=== PATIENT | female | born 1950 | race Caucasian/White ===

== ENCOUNTER 2017-08-12 11:23 | Emergency (ER) | payer OTHER ==
[2017-08-12 11:24] VITALS: BMI 29.3
[2017-08-12] MEDS ORDERED: Pantoprazole 40 MG in Sodium Chloride 0.9% 100 ML IV STA (12:09)
[2017-08-12] MEDS ORDERED: Iohexol 240 (50 ml) ONE (13:04)
[2017-08-12 13:15] LABS: BASO # 0.02 K/mm3 (0.0-2.0); BASO % 0.5 % (0.0-3.0); EOS # 0.1 (0.0-0.7); EOS % 2.5 % (1.5-5.0); GRAN # 1.36 (1.4-6.5); GRAN % 37.1 % (50.0-68.0); HEMOGLOBIN 10.6 g/dL (12.0-16.0); LYMPH # 1.8 (1.2-3.4); LYMPH % 49.2 % (22.0-35.0); MEAN CELL VOLUME 84.2 fl (80.0-105.0); MEAN CORPUSCULAR HEMOGLOBIN 26.6 pg (25.0-35.0); MEAN CORPUSCULAR HGB CONC 31.5 g/dl (31.0-37.0); MEAN PLATELET VOLUME 10.1 fl (7.0-11.0); MONO # 0.4 (0.1-0.6); MONO % 10.7 % (1.0-6.0); RBC 3.99 10^6/uL (3.5-6.1); RED CELL DISTRIBUTION WIDTH 14.6 % (11.5-14.5); WHITE BLOOD COUNT 3.7 10^3/ul (4.5-11.0)
[2017-08-12 13:24] LABS: ALB/GLOB RATIO 1.1 (1.1-1.8); ALBUMIN 4.2 g/dL (3.0-4.8); ALT/SGPT 32 U/L (7-56); AMYLASE 57 U/L (35-125); AST/SGOT 42 U/L (14-36); BLOOD UREA NITROGEN 13 mg/dL (7-21); CALCIUM 9.5 mg/dL (8.4-10.5); GFR AFRICAN-AMERICAN > 60; GFR NON-AFRICAN AMERICAN > 60; INR 1.15 (0.93-1.08); LIPASE 57 U/L (23-300); PARTIAL THROMBOPLASTIN TIME 29.6 Seconds (25.1-36.5); PROTHROMBIN TIME 13.3 SECONDS (9.4-12.5)
[2017-08-12] MEDS ORDERED: Sodium Chloride 0.9% 1,000 ML IV ONE (13:26)
[2017-08-12 13:36] LABS: TROPONIN I < 0.01 ng/mL
[2017-08-12] MEDS ORDERED: Iohexol 350 MG/100 ML VIAL ONE (15:48)
--- NOTE | 2017-08-12 16:32 | CARD ---
APPROVED REPORT EKG Measurement Heart [id number] <Conclusion> Normal sinus rhythm T wave abnormality, consider anterior ischemia Prolonged QT Abnormal ECG
--- NOTE | 2017-08-12 16:54 | CT ---
PROCEDURE: CT Abdomen and Pelvis with contrast HISTORY: Abdominal pain COMPARISON: 11/10/2014 and 05/19/[address] scans of the abdomen and pelvis TECHNIQUE: Contrast dose: Radiation dose: Total exam DLP = mGy-cm. This CT exam was performed using one or more of the following dose reduction techniques: Automated exposure control, adjustment of the mA and/or kV according to patient size, and/or use of iterative reconstruction technique. FINDINGS: LOWER THORAX: Unremarkable. LIVER: Hepatomegaly. Multiple hypervascular contrast-enhancing masses throughout the liver. Similar findings identified on the prior examination. GALLBLADDER AND BILE DUCTS: Unremarkable. PANCREAS: Unremarkable. No gross lesion or ductal dilatation. SPLEEN: Splenomegaly. Multiple contrast-enhancing masses identified in the spleen. Orthogonal splenic measurements 9.5 x 20.7 cm. This compares with prior study 19 x 9.8 cm. No appreciable interval change compared to the prior study. ADRENALS: Unremarkable. No mass. KIDNEYS AND URETERS: Unremarkable. No hydronephrosis. No solid mass. VASCULATURE: Unremarkable. No aortic aneurysm. BOWEL: Thickening of the wall of the colon identified particularly the right hemicolon. The findings may represent mild colitis. Less pronounced changes noted in the left indira colon. Constipation without fecal impaction or obstruction. APPENDIX: No abnormalities to suggest acute appendicitis. No right lower quadrant inflammatory processes identified. PERITONEUM: Unremarkable. No free fluid. No free air. LYMPH NODES: Unremarkable. No enlarged lymph nodes. BLADDER: Unremarkable. REPRODUCTIVE: Unremarkable. BONES: No acute fracture. OTHER FINDINGS: Large periumbilical hernia containing fat only IMPRESSION: 1. Stable hepatomegaly with hypervascular masses. 2. Stable splenomegaly with hypervascular masses. 3. Mild thickening of the colon in the appropriate clinical setting consistent with mild colitis. No focal lesions identified in the colon or small bowel. Additional benign and/or incidental findings described above.
[2017-08-12 19:05] LABS: URINE BILIRUBIN NEGATIVE (NEGATIVE); URINE BLOOD NEGATIVE (NEGATIVE); URINE GLUCOSE (UA) NEGATIVE (NEGATIVE); URINE LEUKOCYTE ESTERASE NEGATIVE Leu/uL (NEGATIVE); URINE NITRATE NEGATIVE (NEGATIVE); URINE PROTEIN NEGATIVE mg/dL (<30 mg/dL); URINE UROBILINOGEN 0.2 E.U./dL (<1 E.U./dL)
[2017-08-12 19:07] LABS: URINE APPEARANCE CLEAR (CLEAR); URINE COLOR STRAW (YELLOW)
--- NOTE | 2017-08-12 19:15 | ED PDOC ---
Arrival/HPI - General Chief Complaint: GI Problem Time Seen by Provider: 08/12/17 11:36 Historian: Patient - History of Present Illness Narrative History of Present Illness (Text): 08/12/17 19:15 67yo female with PMHx of hyperthyroid who present with complaint of abdominal pain and hemorrhoid pain. Per the son in-law who translated, pt have chronic history of constipation intermittently. States she was constipated and when she moved her bowel, she noticed gross blood with rectal pain. Pt re[orts pain on her left flank/back and suprapubic area. She denies nausea, vomiting, chest pain , urinary symptoms, dizziness, fever, chills, any other complaint. Past Medical History - Provider Review Nursing Documentation Reviewed: Yes - Infectious Disease Hx of Infectious Diseases: None - Tetanus Immunization Tetanus Immunization: Unknown - Cardiac Hx Cardiac Disorders: No - Pulmonary Hx Respiratory Disorders: No - Neurological Hx Neurological Disorder: No - HEENT Hx HEENT Disorder: No - Renal Hx Renal Disorder: No - Endocrine/Metabolic Hx Endocrine Disorders: Yes Other/Comment: Unknown if hyperthroidism or hypothyroidism. Medication taken for this problem is foreign and name is unknown per son. - Hematological/Oncological Hx Blood Disorders: No - Integumentary Hx Dermatological Disorder: No - Musculoskeletal/Rheumatological Hx Musculoskeletal Disorders: No - Gastrointestinal Hx Gastrointestinal Disorders: Yes Hx Gastrointestinal Ulcer: Yes Hx Hemorrhoids: Yes Hx Liver Failure: Yes (current) - Genitourinary/Gynecological Hx Genitourinary Disorders: No - Psychiatric Hx Psychophysiologic Disorder: No Hx Substance Use: No - Past Surgical History Past Surgical History: No Previous - Anesthesia Hx Anesthesia Reactions: No Hx Malignant Hyperthermia: No - Suicidal Assessment Feels Threatened In Home Enviroment: No Family/Social History - Physician Review Nursing Documentation Reviewed: Yes Family/Social History: Unknown Family HX Smoking Status: Never Smoked Hx Alcohol Use: No Hx Substance Use: No Hx Substance Use Treatment: No Allergies/Home Meds Allergies/Adverse Reactions: Allergies No Known Allergies Allergy (Verified 08/12/17 11:40) Review of Systems - Physician Review All systems were reviewed & negative as marked: Yes - Review of Systems Constitutional: Normal Eyes: Normal ENT: Normal Respiratory: Normal Cardiovascular: Normal Gastrointestinal: Abdominal Pain, Constipation. absent: Diarrhea, Nausea, Vomiting, Hematemesis Genitourinary Female: Normal Musculoskeletal: Normal Skin: Normal Neurological: Normal Endocrine: Normal Hemo/Lymphatic: Normal Psychiatric: Normal Physical Exam Vital Signs Reviewed: Yes Vital Signs Temp Pulse Resp BP Pulse Ox 08/12/17 20:05 97.9 F 80 18 110/80 100 08/12/17 12:44 98.1 F 72 17 112/70 97 08/12/17 11:35 97.7 F 69 17 117/73 98 08/12/17 11:24 97.7 F 69 17 117/73 98 Temperature: Afebrile Blood Pressure: Normal Pulse: Regular Respiratory Rate: Normal Appearance: Positive for: Well-Appearing, Non-Toxic, Comfortable Pain Distress: None Mental Status: Positive for: Alert and Oriented X 3 - Systems Exam Head: Present: Atraumatic, Normocephalic Pupils: Present: PERRL Extroacular Muscles: Present: EOMI Conjunctiva: Present: Normal Mouth: Present: Moist Mucous Membranes Neck: Present: Normal Range of Motion Respiratory/Chest: Present: Clear to Auscultation, Good Air Exchange. No: Respiratory Distress, Accessory Muscle Use Cardiovascular: Present: Regular Rate and Rhythm, Normal S1, S2. No: Murmurs Abdomen: Present: Tenderness (suprapubic and left flank), Normal Bowel Sounds, Other (soft). No: Distention, Peritoneal Signs, Rebound, Guarding, McBurney's Point Tender, Rovsing's Sign Present Rectal: Present: Hemorrhoids (Nonstrangulated, nonswollen external hemorrhoid noted). No: Occult Blood Back: Present: Normal Inspection Upper Extremity: Present: Normal Inspection. No: Cyanosis, Edema Lower Extremity: Present: Normal Inspection. No: Edema Neurological: Present: GCS=15, CN II-XII Intact, Speech Normal Skin: Present: Warm, Dry, Normal Color. No: Rashes Psychiatric: Present: Alert, Oriented x 3, Normal Insight, Normal Concentration Medical Decision Making ED Course and Treatment: 08/12/17 20:48 PT in ED for stated history. She was comfortable in ED. Lab was unremarkable. Abdominal CT IMPRESSION: 1. Stable hepatomegaly with hypervascular masses. 2. Stable splenomegaly with hypervascular masses. 3. Mild thickening of the colon in the appropriate clinical setting consistent with mild colitis. No focal lesions identified in the colon or small bowel. Additional benign and/or incidental findings described above. Pt was noted to tolerate sandwich in ED. Result was DW the pt. She was DC home with a rx of Mirlax, protonix and anusol crream. Referred to a GI. - Lab Interpretations Lab Results: 08/12/17 12:30 08/12/17 12:30 Lab Results 08/12/17 18:15: Urine Color Straw, Urine Appearance Clear, Urine pH 6.0, Ur Specific [place] <= 1.005, Urine Protein Negative, Urine Glucose (UA) Negative, Urine Ketones Negative, Urine Blood Negative, Urine Nitrate Negative, Urine Bilirubin Negative, Urine Urobilinogen 0.2, Ur Leukocyte Esterase Negative 08/12/17 12:30: Sodium 145, Potassium 3.7, Chloride 108 H, Carbon Dioxide 24, Anion Gap 17, BUN 13, Creatinine 0.6 L, Est GFR ( Amer) > 60, Est GFR ( Non-Af Amer) > 60, Random Glucose 124 H, Calcium 9.5, Total Bilirubin 0.7, AST 42 H, ALT 32, Alkaline Phosphatase 77, Lactate Dehydrogenase 309 L, Total Creatine Kinase 26 L, Troponin I < 0.01, Total Protein 7.9, Albumin 4.2, Globulin 3.7, Albumin/Globulin Ratio 1.1, Amylase 57, Lipase 57 08/12/17 12:30: PT 13.3 H, INR 1.15 H, APTT 29.6 08/12/17 12:30: WBC 3.7 L, RBC 3.99, Hgb 10.6 L, Hct 33.6 L, MCV 84.2, MCH 26.6 , MCHC 31.5, RDW 14.6 H, Plt Count 112 L, MPV 10.1, Gran % 37.1 L, Lymph % (Auto ) 49.2 H, [place] % (Auto) 10.7 H, Eos % (Auto) 2.5, Baso % (Auto) 0.5, Gran # 1.36 L, Lymph # (Auto) 1.8, [place] # (Auto) 0.4, Eos # (Auto) 0.1, Baso # (Auto) 0.02 - RAD Interpretation Radiology Orders: 08/12/17 12:09 ABD PELVIS PO & IV CONTRAST [CT] Stat - Medication Orders Current Medication Orders: Discontinued Medications Sodium Chloride (Sodium Chloride 0.9%) 1,000 mls @ 250 mls/hr IV .Q4H ONE Stop: 08/12/17 17:25 Last Admin: 08/12/17 13:35 Dose: 250 mls/hr eMAR Start Stop Document 08/12/17 13:35 SRE (Rec: 08/12/17 13:36 SRE [id number]) Intravenous Solution Start Date 08/12/17 Start Time 13:35 End Date 08/12/17 End time 17:35 Total Infusion Time 240 Ondansetron HCl (Zofran Inj) 4 mg IVP STAT STA Stop: 08/12/17 12:10 Last Admin: 08/12/17 12:42 Dose: 4 mg IVP Administration Document 08/12/17 12:42 SRE (Rec: 08/12/17 12:43 SRE [id number]) Charges for Administration # of IVP Administrations 1 Pantoprazole Sodium (Protonix Inj) 40 mg IVP ONCE ONE Stop: 08/12/17 12:16 Last Admin: 08/12/17 12:42 Dose: 40 mg IVP Administration Document 08/12/17 12:42 SRE (Rec: 08/12/17 12:42 SRE [id number]) Charges for Administration # of IVP Administrations 1 Disposition/Present on Arrival - Present on Arrival Any Indicators Present on Arrival: No History of DVT/PE: No History of Uncontrolled Diabetes: No Urinary Catheter: No History of Decub. Ulcer: No History Surgical Site Infection Following: None - Disposition Have Diagnosis and Disposition been Completed?: Yes Diagnosis: Abdominal pain, Hemorrhoid, Constipation Disposition: HOME/ ROUTINE Disposition Time: 19:30 Patient Plan: Discharge Condition: STABLE Discharge Instructions (ExitCare): Constipation (ED), Abdominal Pain (ED) Additional Instructions: Follow up with your doctor/Forensics Team Director Increase your finer intake Return to ED for any new or worsening symptoms Prescriptions: Hydrocortisone 2.5% (Rectal) [Anusol-HC] 30 gm RC TID #1 tube Pantoprazole Sodium [Protonix] 40 mg PO DAILY #15 ect Polyethylene Glycol 3350 [Miralax] 17 gm PO BID #100 powd.pack Referrals: PCP,NO [Primary Care Provider] - Follow up with primary Rashaad Elliott DO [Staff Provider] - Follow up with primary Forms: Guzu (Serbian)
[2017-08-12 20:06] VITALS: BP 110/80; PULSE 80; RESP 18; TEMP 97.9; O2SAT 100
== END 2017-08-12 20:05 | disposition home or self-care (01) ==
LOC: ED 11:23
DX: K64.9 Unspecified hemorrhoids (principal); K59.00 Constipation, unspecified; R10.9 Unspecified abdominal pain
CPT/HCPCS: 74177; 80053; 81003; 82150; 82550; 83615; 83690; 84484; 85025; 85610; 85730; 93005; 96361; 96374; 96375; 99282; C9113; J2405; J7040; Q9966; Q9967